=== PATIENT | female | born 1990 | race American Indian/Alaskan Native ===

== ENCOUNTER 2020-06-18 00:04 | Emergency (ER) | payer SELFPAY ==
[2020-06-18 02:57] VITALS: BP 135/97
[2020-06-18] MEDS ORDERED: ONDANSETRON 4 MG ODT TAB PO ONE (03:16)
[2020-06-18] MEDS ORDERED: HYDROcodone/ACETAMINOPHEN 7.5-325MG TAB PO ONE (03:16)
[2020-06-18] MEDS ORDERED: IBUPROFEN 600 MG TAB PO ONE (03:16)
--- NOTE | 2020-06-18 03:22 | XRay Report ---
RIGHT HAND 3 VIEWS INDICATION / CLINICAL INFORMATION: right hand pain. COMPARISON: None available. FINDINGS: BONES/JOINT(S): There is a mildly displaced and angulated fracture of the shaft of the fifth metacarp al with dorsal apex angulation. There is no other acute fracture. SOFT TISSUES: No significant abnormality. ADDITIONAL FINDINGS: None. Signer Name: Ted Astorga MD Signed: 06/18/2020 3:18 AM Workstation Name: [id number]
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
== END 2020-06-18 05:23 | disposition home or self-care (01) ==
LOC: ED 00:04
DX: S62.326A Displaced fracture of shaft of fifth metacarpal bone, right hand, initial encounter for closed fracture (principal); S60.221A Contusion of right hand, initial encounter; S60.00XA Contusion of unspecified finger without damage to nail, initial encounter; Z79.899 Other long term (current) drug therapy; Z87.891 Personal history of nicotine dependence; X58.XXXA Exposure to other specified factors, initial encounter; Y93.89 Activity, other specified; Y92.89 Other specified places as the place of occurrence of the external cause; Y99.0 Civilian activity done for income or pay
CPT/HCPCS: Q0162